=== PATIENT | female | born 2000 | race Caucasian/White ===

== ENCOUNTER 2021-05-05 21:17 | Emergency (ER) | payer BC ==
[~2021-05-05] VITALS: Ht 167.6 cm; Wt 59.0 kg
[2021-05-05] MEDS ORDERED: PREDNISONE20 M1 PO (21:45)
== END 2021-05-05 22:11 | disposition home or self-care (01) ==
LOC: ED 21:17
DX: J30.2 Other seasonal allergic rhinitis (principal); Z91.048 Other nonmedicinal substance allergy status